=== PATIENT | female | born 1965 | race Two or more races ===

== ENCOUNTER 2023-01-13 09:07 | Outpatient (CLI) | payer OTHER | END 2023-01-13 09:10 | disposition home or self-care (01) | LOC: LAB 09:07 | PROVIDERS: ATTEND Colon & Rectal Surgery | DX: K59.00 Constipation, unspecified (principal); N39.0 Urinary tract infection, site not specified; D59.8 Other acquired hemolytic anemias; D68.9 Coagulation defect, unspecified; Z20.828 Contact with and (suspected) exposure to other viral communicable diseases; Z11.59 Encounter for screening for other viral diseases ==

== ENCOUNTER 2023-01-18 09:28 | Outpatient (CLI) | payer OTHER | END 2023-01-18 09:37 | disposition home or self-care (01) | LOC: TOM 09:28 | PROVIDERS: ATTEND Colon & Rectal Surgery | DX: R10.31 Right lower quadrant pain (principal); K59.00 Constipation, unspecified; K62.5 Hemorrhage of anus and rectum ==

== ENCOUNTER 2023-01-26 08:15 | Day surgery (SDC) | payer OTHER | END 2023-01-26 15:25 | disposition home or self-care (01) | LOC: AMB-ENDOS 08:15 | PROVIDERS: ATTEND Colon & Rectal Surgery | DX: K59.00 Constipation, unspecified (principal); K57.30 Diverticulosis of large intestine without perforation or abscess without bleeding; R10.11 Right upper quadrant pain; Z20.822 Contact with and (suspected) exposure to COVID-19; Z91.011 Allergy to milk products ==